=== PATIENT | male | born 1980 | race Caucasian/White ===

== ENCOUNTER 2017-06-25 08:00 | Outpatient (CLI) | payer OTHER ==
[2017-06-25 12:37] LABS: HB2 TOTAL 17.4 g/dL; HEMOGLOBIN A1C 0.61 g/dL; HEMOGLOBIN A1C % 5.4 % (4.6-6.2)
[2017-06-25 12:38] LABS: ALBUMIN/GLOBULIN RATIO 1.9 (1.0-2.2); ALKALINE PHOSPHATASE 59 IU/L (42-121); ALT ALANINE AMINOTRANSFERASE 51 IU/L (10-60); AST ASPARTATE AMINOTRANSFERASE 28 IU/L (10-42); BILIRUBIN,TOTAL 1.3 mg/dL (0.2-1.0); BUN - BLOOD UREA NITROGEN 15 mg/dL (6-20); CALCIUM 9.5 mg/dL (8.5-10.3); CARBON DIOXIDE - CO2 28 mmol/L (21-32); CHLORIDE 101 mmol/L (101-111); CHOL/HDL RATIO 8.3 (<5.0); CHOLESTEROL 232 mg/dL; CREATININE 1.1 mg/dL (0.6-1.2); GFR - MDRD 75 (>89); GLUCOSE 95 mg/dL (70-100); HDL CHOLESTEROL 28 mg/dL; LDL CHOLESTEROL,CALCULATED 176 mg/dL; LDL/HDL RATIO 6.3 (<3.6); SODIUM 137 mmol/L (135-145); TOTAL PROTEIN 7.6 g/dL (6.7-8.2); VLDL CHOLESTEROL 28 mg/dL
== END 2017-06-25 08:01 | disposition home or self-care (01) ==
LOC: LAB.WCP 08:00
PROVIDERS: ATTEND Family Medicine
DX: E88.81 Metabolic syndrome and other insulin resistance (principal); I10 Essential (primary) hypertension; E78.5 Hyperlipidemia, unspecified
CPT/HCPCS: 36415; 80053; 80061; 83036; 83721; 84443

== ENCOUNTER 2018-04-11 08:00 | Outpatient (CLI) | payer BC, OTHER ==
[2018-04-11 18:46] LABS: BASOPHILS % (AUTO) 0.5 %; EOSINOPHILS # (AUTO) 0.2 10^3/uL (0.0-0.7); EOSINOPHILS % (AUTO) 2.4 %; LYMPHOCYTES # (AUTO) 2.6 10^3/uL (1.5-3.5); LYMPHOCYTES % (AUTO) 39.4 %; MEAN CORPUSCULAR HEMOGLOBIN 30.7 pg (27.0-31.0); MEAN CORPUSCULAR HGB CONC 33.9 g/dL (32.0-36.0); MEAN CORPUSCULAR VOLUME 90.8 fL (80.0-94.0); MEAN PLATELET VOLUME 8.8 fL (7.4-11.4); MONOCYTES # (AUTO) 0.5 10^3/uL (0.0-1.0); MONOCYTES % (AUTO) 8.1 %; NEUTROPHILS # (AUTO) 3.3 10^3/uL (1.5-6.6); NEUTROPHILS % (AUTO) 49.6 %; PLT - PLATELET COUNT 197 10^3/uL (130-450); RED BLOOD COUNT 5.53 10^6/uL (4.70-6.10); RED CELL DISTRIBUTION WIDTH 13.1 % (12.0-15.0); WHITE BLOOD COUNT 6.7 x10^3/uL (4.8-10.8)
[2018-04-11 19:05] LABS: ALBUMIN 4.9 g/dL (3.2-5.5); ALBUMIN/GLOBULIN RATIO 1.8 (1.0-2.2); BILIRUBIN,TOTAL 1.3 mg/dL (0.2-1.0); CREATININE 1.2 mg/dL (0.6-1.2); TOTAL PROTEIN 7.6 g/dL (6.7-8.2)
[2018-04-11 19:07] LABS: TROPONIN I < 0.04 ng/mL (<0.49)
== END 2018-04-11 23:59 | disposition home or self-care (01) ==
LOC: LAB.WCP 08:00
PROVIDERS: ATTEND Family Medicine
DX: R00.2 Palpitations (principal)
CPT/HCPCS: 36415; 80053; 82553; 84443; 84484; 85025

== ENCOUNTER 2018-04-14 08:00 | Outpatient (CLI) | payer BC, OTHER ==
[2018-04-14 19:20] LABS: ALBUMIN 4.9 g/dL (3.2-5.5); BILIRUBIN,DIRECT 0.2 mg/dL (0.1-0.5); BILIRUBIN,TOTAL 2.1 mg/dL (0.2-1.0); TOTAL PROTEIN 7.3 g/dL (6.7-8.2)
[2018-04-15 13:07] LABS: HEPATITIS B SURFACE ANTIGEN NON-REACTIVE (NON-REACTIVE); HEPATITIS C ANTIBODY NON-REACTIVE (NON-REACTIVE)
== END 2018-04-14 23:59 | disposition home or self-care (01) ==
LOC: LAB.WCP 08:00
PROVIDERS: ATTEND Family Medicine
DX: R74.8 Abnormal levels of other serum enzymes (principal)
CPT/HCPCS: 36415; 80076; 86317; 86704; 86709; 86803; 87340